=== PATIENT | male | born 1935 | race Caucasian/White ===

== ENCOUNTER 2017-08-28 12:25 | Emergency (ER) | payer MEDICARE, SELFPAY | END 2017-08-28 13:35 | disposition home or self-care (01) | PROVIDERS: Emergency Provider Emergency Medicine; Visit Provider Emergency Medicine | DX: J10.1 Influenza due to other identified influenza virus with other respiratory manifestations (principal); J20.9 Acute bronchitis, unspecified; E11.9 Type 2 diabetes mellitus without complications; I95.9 Hypotension, unspecified; Z79.82 Long term (current) use of aspirin; Z87.891 Personal history of nicotine dependence | CPT/HCPCS: 87275; 87276 ==

== ENCOUNTER 2021-05-03 22:20 | Emergency (ER) | payer MEDICARE, OTHER, SELFPAY ==
[2021-05-03 22:32] VITALS: BP 111/57; PULSE 82; RESP 20; TEMP 37.8; O2SAT 95; BMI 21.9
--- NOTE | 2021-05-03 22:47 | CT_ITS ---
PROCEDURE INFORMATION: Exam: CT Head Without Contrast Exam date and time: 05/03/2021 10:47 PM Age: 85 years old Clinical indication: Altered mental status/memory loss; Additional info: AMS TECHNIQUE: Imaging protocol: Computed tomography of the head without contrast. Radiation optimization: All CT scans at this facility use at least one of these dose optimization techniques: automated exposure control; mA and/or kV adjustment per patient size (includes targeted exams where dose is matched to clinical indication); or iterative reconstruction. COMPARISON: No relevant prior studies available. FINDINGS: Brain: Atrophy and chronic small vessel ischemic changes. No hemorrhage. No mass effect or midline shift. Cerebral ventricles: No ventriculomegaly. Paranasal sinuses: Visualized sinuses are unremarkable. No fluid levels. Mastoid air cells: Visualized mastoid air cells are well aerated. Bones/joints: Unremarkable. No acute fracture. Soft tissues: Unremarkable. IMPRESSION: Chronic changes in the brain but no acute intracranial abnormality.
[2021-05-03 22:58] LABS: Basophils # 0.1 K/mm3 (0-0.2); Basophils % 1.2 % (0.1-2.0); Eosinophils # 0.1 K/mm3 (0.0-0.4); Eosinophils % 1.4 % (0.1-12.0); Hematocrit 38.6 % (42.0-52.0); Hemoglobin 12.6 g/dL (14.1-18.0); Lymphocytes # 0.5 K/mm3 (0.7-4.5); Lymphocytes % 9.2 % (10-50); Mean Corpuscular HGB Conc 32.6 g/dL (31.8-35.4); Mean Corpuscular Hemoglobin 30.5 pg (27.0-31.2); Mean Corpuscular Volume 93.5 fl (80-94); Mean Platelet Volume 8.4 fl (7.4-10.4); Monocytes # 0.5 K/mm3 (0.1-1.0); Monocytes % 8.8 % (1.7-9.3); Neutrophils # 4.4 K/mm3 (1.8-7.8); Neutrophils % 79.3 % (37.0-80.0); Platelet Count 173 K/mm3 (142-424); Red Blood Count 4.13 M/mm3 (4.60-6.20); Red Cell Distribution Width 14.4 % (11.5-17.5); White Blood Count 5.6 K/mm3 (4.8-10.8)
[2021-05-03 23:04] LABS: Alanine Aminotransferase 22 U/L (12-78); Albumin/Globulin Ratio 1.4 (1.1-1.8); Alkaline Phosphatase 73 U/L (38-126); Aspartate Amino Transferase 29 U/L (17-59); Bilirubin,Total 0.4 mg/dl (0.2-1.3); Blood Urea Nitrogen 12 mg/dl (9-20); Calcium 9.5 mg/dl (8.4-10.2); Carbon Dioxide 31 mmol/L (22.0-30.0); Chloride 100 mmol/L (98-107); Creatinine Clearance Estimated 55 mL/min (50-200); Estimated Glomerular Filt Rate 107 ml/min (>60); GFR (African American) 130 ML/MIN (>60); Globulin 2.9 g/dL (1.3-3.2); Glucose 193 mg/dl (74-100); Lactic Acid 1.1 mmol/L (0.7-2.1); Sodium 136 mmol/L (136-145); Total Protein,Serum 6.9 g/dl (6.3-8.2)
[2021-05-03 23:05] LABS: Microscopic, Urine URINE MICROSCOPIC (MICROSCOPIC)
[2021-05-03 23:07] LABS: Appearance,Urine CLEAR (Clear); Bilirubin,Urine Negative (Negative); Blood, Urine TRACE-I (Negative); Color,Urine YELLOW (Yellow); Glucose,Urine (UA) 2+ (Negative); Ketones,Urine Negative (Negative); Leukocyte Esterase,Urine 1+ (Negative); Nitrate,Urine Negative (Negative); Protein,Urine Negative (Negative); Urobilinogen,Urine 0.2 EU/dl (0.2)
[2021-05-03 23:09] LABS: C-Reactive Protein 8.1 mg/L (0-4)
--- NOTE | 2021-05-03 23:15 | HMH.EDAMS ---
ED Disposition Clinical Impression: Acute delirium, COVID-19 UTI (urinary tract infection) Qualifiers: Urinary tract infection type: site unspecified Hematuria presence: without hematuria Qualified Code(s): N39.0 - Urinary tract infection, site not specified Disposition: Home, Self-Care Condition on Discharge: Fair Instructions: DI for COVID-19 (Suspected or Confirmed ), DI for Urinary Tract Infection (UTI) Additional Instructions: fluids and call pcp for follow up and possible covid-19 infusion Prescriptions: Cefdinir [Omnicef 300mg Capsule] 300 mg PO BID #14 cap Transmission Status: Pending to [facility][id number] Referrals: Provider,Referral, [Primary Care Provider] - - Critical Care Critical Care Time: No Attestation: On 05/03/21, the high probability of a clinically significant, sudden or life threatening deterioration of the following system(s) required my full and direct attention, intervention and personal management. The time I documented below is in addition to time spent performing reported procedures but includes the following listed in this critical care notation. Medical Decision Making - Medical Records Medical records reviewed: Yes: I reviewed the patient's medical records. - Mendel Inquiry Pt receiving controlled substance: No Vital Signs: 05/03/21 22:32 05/03/21 23:24 Temperature 100.0 F H 101.3 F H Temperature Source Oral Rectal Pulse Rate [Right] 82 Respiratory Rate 20 Blood Pressure [Left Arm] 111/57 L Blood Pressure Mean [Left Arm] 75 Blood Pressure Source [Left Arm] Automatic Cuff Blood Pressure Position [Left Arm] Supine 02 Sat by Pulse Oximetry 95 Oxygen Delivery Method Room Air - Lab Data Lab results reviewed: Yes: I reviewed the patient's lab results. Lab Results 05/03/21 22:43: WBC 5.6, RBC 4.13 L, Hgb 12.6 L, Hct 38.6 L, MCV 93.5, MCH 30.5, MCHC 32.6, RDW 14.4, Plt Count 173, MPV 8.4, Neut % (Auto) 79.3, Lymph % (Auto) 9.2 L, [place] % (Auto) 8.8, Eos % (Auto) 1.4, Baso % (Auto) 1.2, Neut # (Auto) 4.4, Lymph # (Auto) 0.5 L, [place] # (Auto) 0.5, Eos # (Auto) 0.1, Baso # (Auto) 0.1, ESR 19 05/03/21 22:43: Sodium 136, Potassium 4.0, Chloride 100, Carbon Dioxide 31 H, Anion Gap 9.0, BUN 12, Creatinine 0.70, Estimated Creat Clear 55, Estimated GFR 107, Est GFR ( Amer) 130, Glucose 193 H, Calcium 9.5, Total Bilirubin 0.4, AST 29, ALT 22, Alkaline Phosphatase 73, C-Reactive Protein 8.1 H, Total Protein 6.9, Albumin 4.0, Globulin 2.9, Albumin/Globulin Ratio 1.4, Procalcitonin 0.136 05/03/21 22:43: Lactate 1.1 05/03/21 22:43: Troponin I < 0.01 05/03/21 23:00: Urine Color Yellow, Urine Appearance Clear, Urine pH 6.0, Ur Specific [place] 1.020, Urine Protein Negative, Urine Glucose (UA) 2+, Urine Ketones Negative, Urine Blood Trace-i, Urine Nitrate Negative, Urine Bilirubin Negative, Urine Urobilinogen 0.2, Ur Leukocyte Esterase 1+ A, Urine RBC 3-5, Urine WBC 10-20 05/03/21 23:30: SARS-CoV-2 (PCR) Detected A, Influenza A Untype (PCR) Not detected, Influenza Type B (PCR) Not detected Result diagrams: 05/03/21 22:43 05/03/21 22:43 Orders (Tests/Meds): ED MEDICATIONS Generic Name Dose Route Start Last Admin Trade Name Freq PRN Reason Stop Dose Admin Sodium Chloride 1,000 mls @ 999 mls/hr 05/03/21 23:30 05/03/21 23:29 Sod Chlor 0.9% 1000ml Bag IV 05/04/21 00:30 999 mls/hr .Q1H1M LEAH Administration Ceftriaxone Sodium 1 gm/ 50 mls @ 100 mls/hr 05/03/21 23:30 05/03/21 23:29 Sodium Chloride IV 05/17/21 23:29 100 mls/hr Q24H LEAH Administration Discontinued Medications Generic Name Dose Route Start Last Admin Trade Name Freq PRN Reason Stop Dose Admin Acetaminophen 1,000 mg 05/03/21 23:25 05/03/21 23:28 Acetaminophen 500mg Tab PO 05/03/21 23:26 1,000 mg ONCE ONE Administration ORDERS Category Date Time Status Troponin I Q3H Lab 05/04/21 02:30 Ordered Troponin I Q3H Lab 05/04/21 05:30 Ordered Blood Culture S
--- NOTE | 2021-05-03 23:18 | ECG_ITS ---
APPROVED REPORT Exam: Resting ECG HR:83 bpm ECG Measurements Heart Rate 83 AXES MO 140 P 41 QRSd 74 QRS -55 QT 358 T 72 QTc 420 Conclusion Normal sinus rhythm Left anterior fascicular block Late R wave progression Abnormal ECG Electronically signed by : Reginald Amado MD 05/04/2021 20:38:29
--- NOTE | 2021-05-03 23:18 | XR_ITS ---
PROCEDURE INFORMATION: Exam: XR Chest Exam date and time: 05/03/2021 11:18 PM Age: 85 years old Clinical indication: Fever; Additional info: Confusion, fever TECHNIQUE: Imaging protocol: XR of the chest. Views: 1 view. COMPARISON: No relevant prior studies available. FINDINGS: Lungs: Mild scarring and atelectasis in the lung bases. COPD. No consolidation. Pleural spaces: Unremarkable. No pleural effusion. No pneumothorax. Heart/Mediastinum: Unremarkable. No cardiomegaly. Bones/joints: Unremarkable. IMPRESSION: No acute findings.
[2021-05-03 23:22] LABS: Procalcitonin 0.136 ng/mL (0.0-2.0)
[2021-05-03 23:24] VITALS: TEMP 38.5
[2021-05-03 23:24] LABS: Erythrocyte Sedimentation Rate 19 mm/hr (0-20)
[2021-05-03 23:37] LABS: Influenza A, PCR Not Detected (NotDetected); Influenza B, PCR Not Detected (NotDetected)
[2021-05-03 23:41] LABS: Troponin I < 0.01 ng/ml (0.00-0.034)
[2021-05-03 23:57] LABS: Coronavirus 19, PCR Detected (NotDetected)
[2021-05-04 00:52] VITALS: BP 121/71; PULSE 79; RESP 20; TEMP 37.6; O2SAT 95
== END 2021-05-04 00:54 | disposition home or self-care (01) ==
PROVIDERS: Emergency Provider Emergency Medicine
DX: U07.1 COVID-19 (principal); R41.0 Disorientation, unspecified; N30.00 Acute cystitis without hematuria; I10 Essential (primary) hypertension; F41.9 Anxiety disorder, unspecified
CPT/HCPCS: 70450; 71045; 80053; 81001; 83605; 84145; 84484; 85025; 85651; 86140; 87040; 87077; 87086; 87186; 93005; 96365; 99284; U0003

== ENCOUNTER 2021-10-05 15:13 | Emergency (ER) | payer MEDICARE, OTHER, SELFPAY ==
[2021-10-05 15:14] VITALS: BP 112/79; PULSE 73; RESP 16; TEMP 37.1; O2SAT 97; BMI 22.3
--- NOTE | 2021-10-05 15:47 | HMH.EDGENADL ---
ED Disposition Clinical Impression: Cellulitis of both lower extremities, Lower extremity edema Disposition: Home, Self-Care Condition on Discharge: Good Instructions: Cellulitis, DI for Peripheral Edema -- Bilateral Additional Instructions: follow up your doctor 5-7 days, return for worse Prescriptions: Mupirocin [Bactroban 2% Ointment 22gm tube] 1 applicatio TP TID 10 Days #22 gm Transmission Status: Pending to [email or web address] # cephALEXin [Cephalexin 500mg Tab] 500 mg PO Q6H #40 tab Transmission Status: Pending to [facility] # Referrals: Provider,Referral, [Primary Care Provider] - - Critical Care Critical Care Time: No Attestation: On , the high probability of a clinically significant, sudden or life threatening deterioration of the following system(s) required my full and direct attention, intervention and personal management. The time I documented below is in addition to time spent performing reported procedures but includes the following listed in this critical care notation. Medical Decision Making - Medical Records Medical records reviewed: Yes: I reviewed the patient's medical records. - Mendel Inquiry Pt receiving controlled substance: No Vital Signs: 10/05/21 15:14 10/05/21 16:26 Temperature 98.8 F Temperature Source Oral Pulse Rate 68 Pulse Rate [Left Radial] 73 Respiratory Rate 16 Blood Pressure 125/61 Blood Pressure [Right Arm] 112/79 Blood Pressure Mean [Right Arm] 90 Blood Pressure Source Automatic Cuff Blood Pressure Source [Right Arm] Automatic Cuff Blood Pressure Position Sitting Blood Pressure Position [Right Arm] Sitting 02 Sat by Pulse Oximetry 97 95 Oxygen Delivery Method Room Air Room Air - Lab Data Lab Results 10/05/21 15:40: WBC 6.6, RBC 4.21 L, Hgb 12.4 L, Hct 38.6 L, MCV 91.5, MCH 29.5, MCHC 32.3, RDW 15.3, Plt Count 243, MPV 8.8, Neut % (Auto) 72.2, Lymph % (Auto) 15.9, [place] % (Auto) 6.8, Eos % (Auto) 4.2, Baso % (Auto) 0.8, Neut # (Auto) 4.8, Lymph # (Auto) 1.1, Ocean # (Auto) 0.5, Eos # (Auto) 0.3, Baso # (Auto) 0.1 10/05/21 15:40: Sodium 139, Potassium 4.1, Chloride 99, Carbon Dioxide 31 H, Anion Gap 13.1, BUN 24 H, Creatinine 1.10, Estimated Creat Clear 50, Estimated GFR 64, Est GFR ( Amer) 77, Glucose 327 H, Calcium 9.4, Total Bilirubin 0.5, AST 21, ALT 14, Alkaline Phosphatase 90, Total Protein 6.9, Albumin 4.0, Globulin 2.9, Albumin/Globulin Ratio 1.4 Result diagrams: 10/05/21 15:40 10/05/21 15:40 Orders (Tests/Meds): ED MEDICATIONS Generic Name Dose Route Start Last Admin Trade Name Freq PRN Reason Stop Dose Admin Ceftriaxone Sodium 1 gm/ 50 mls @ 100 mls/hr 10/05/21 16:45 Sodium Chloride IV 10/05/21 17:14 ONCE ONE General Adult HPI - General Chief complaint: Wound/Laceration Stated complaint: pain in both legs Time Seen by Provider: 10/05/21 15:47 Mode of Arrival: Wheelchair Limitations: No Limitations Description of Symptoms (Recalled from ER Triage Doc. by RN): c/o bilateral leg sores and drainage for one month after bumping his legs against things at home - History of Present Illness HPI narrative: bilateral leg wounds and swelling, several weeks Onset (ago): week(s) Location: lower extremity Radiation: non-radiation Severity: moderate Consistency: constant Relieving factors: none Exacerbating factors: none Associated symptoms: denies other symptoms - Related Data Home Medications Medication Instructions Recorded Confirmed Ascorbic Acid [Vitamin C] 500 mg PO DAILY 05/03/21 05/03/21 Atorvastatin Calcium [Lipitor 40mg 40 mg PO HS 05/03/21 05/03/21 Tab] Docusate Sodium [Colace Clear] 50 mg PO BID PRN 05/03/21 05/03/21 Metformin HCl [Metformin 1000mg 1,000 mg PO BID 05/03/21 05/03/21 Tablets] carvediloL [Carvedilol 6.25mg Tab] 0.5 tab PO BID 05/03/21 05/03/21 glipiZIDE [Glipizide] 20 mg PO BID 09/05/21 09/05/21 hydroCHLOROthiazide [HCTZ 25mg 12
[2021-10-05 16:01] LABS: Basophils # 0.1 K/mm3 (0-0.2); Basophils % 0.8 % (0.1-2.0); Eosinophils # 0.3 K/mm3 (0.0-0.4); Eosinophils % 4.2 % (0.1-12.0); Hematocrit 38.6 % (42.0-52.0); Hemoglobin 12.4 g/dL (14.1-18.0); Lymphocytes # 1.1 K/mm3 (0.7-4.5); Lymphocytes % 15.9 % (10-50); Mean Corpuscular HGB Conc 32.3 g/dL (31.8-35.4); Mean Corpuscular Hemoglobin 29.5 pg (27.0-31.2); Mean Corpuscular Volume 91.5 fl (80-94); Mean Platelet Volume 8.8 fl (7.4-10.4); Monocytes # 0.5 K/mm3 (0.1-1.0); Monocytes % 6.8 % (1.7-9.3); Neutrophils # 4.8 K/mm3 (1.8-7.8); Neutrophils % 72.2 % (37.0-80.0); Platelet Count 243 K/mm3 (142-424); Red Blood Count 4.21 M/mm3 (4.60-6.20); Red Cell Distribution Width 15.3 % (11.5-17.5); White Blood Count 6.6 K/mm3 (4.8-10.8)
[2021-10-05 16:08] LABS: Alanine Aminotransferase 14 U/L (12-78); Albumin/Globulin Ratio 1.4 (1.1-1.8); Alkaline Phosphatase 90 U/L (38-126); Anion Gap 13.1 mEq/L (5-15); Aspartate Amino Transferase 21 U/L (17-59); Bilirubin,Total 0.5 mg/dl (0.2-1.3); Blood Urea Nitrogen 24 mg/dl (9-20); Calcium 9.4 mg/dl (8.4-10.2); Carbon Dioxide 31 mmol/L (22.0-30.0); Chloride 99 mmol/L (98-107); Creatinine Clearance Estimated 50 mL/min (50-200); Estimated Glomerular Filt Rate 64 ml/min (>60); GFR (African American) 77 ML/MIN (>60); Globulin 2.9 g/dL (1.3-3.2); Glucose 327 mg/dl (74-100); Potassium 4.1 mmoL/L (3.5-5.1); Sodium 139 mmol/L (136-145); Total Protein,Serum 6.9 g/dl (6.3-8.2)
[2021-10-05 16:26] VITALS: BP 125/61; PULSE 68; O2SAT 95
--- NOTE | 2021-10-05 17:19 | PC.NURSE ---
Bactroban cream wrapped on legs with non adhesive pads place on top of legs wrapped in kerlex and sana wrap. Pt tolerated well
[2021-10-05 17:36] VITALS: BP 120/60; PULSE 71; RESP 16; TEMP 37.1; O2SAT 96
== END 2021-10-05 17:38 | disposition home or self-care (01) ==
PROVIDERS: Emergency Provider Emergency Medicine
DX: L03.115 Cellulitis of right lower limb (principal); L03.116 Cellulitis of left lower limb
CPT/HCPCS: 80053; 85025; 96374; 99282; J0696

== ENCOUNTER 2022-04-22 23:13 | Emergency (ER) | payer MEDICARE, OTHER, SELFPAY ==
[2022-04-22 23:13] VITALS: BP 157/83; PULSE 88; RESP 16; TEMP 36.7; O2SAT 98; BMI 22.1
[2022-04-22 23:30] VITALS: BP 136/92; PULSE 84; O2SAT 94
[2022-04-22 23:53] LABS: Microscopic, Urine URINE MICROSCOPIC (MICROSCOPIC)
[2022-04-22 23:55] LABS: Basophils # 0.1 K/mm3 (0-0.2); Basophils % 0.8 % (0.1-2.0); Eosinophils # 0.3 K/mm3 (0.0-0.4); Eosinophils % 2.7 % (0.1-12.0); Hematocrit 38.8 % (42.0-52.0); Lymphocytes # 1.4 K/mm3 (0.7-4.5); Lymphocytes % 13.3 % (10-50); Mean Corpuscular HGB Conc 30.9 g/dL (31.8-35.4); Mean Corpuscular Hemoglobin 28.7 pg (27.0-31.2); Mean Corpuscular Volume 92.9 fl (80-94); Mean Platelet Volume 9.8 fl (7.4-10.4); Monocytes % 9.2 % (1.7-9.3); Neutrophils % 74.1 % (37.0-80.0); Platelet Count 229 K/mm3 (142-424); Red Blood Count 4.18 M/mm3 (4.60-6.20); Red Cell Distribution Width 15.5 % (11.5-17.5); White Blood Count 10.8 K/mm3 (4.8-10.8)
[2022-04-22 23:59] LABS: Appearance,Urine CLEAR (Clear); Bilirubin,Urine Negative (Negative); Blood, Urine 3+ (Negative); Color,Urine YELLOW (Yellow); Glucose,Urine (UA) Negative (Negative); Ketones,Urine Negative (Negative); Leukocyte Esterase,Urine Negative (Negative); Nitrate,Urine Negative (Negative); PH,Urine 6.5 (5.0-8.5); Protein,Urine Negative (Negative)
[2022-04-23] VITALS (17 sets, daily range): BP systolic 140–163; BP diastolic 73–95; PULSE 63–82; RESP 14–17; TEMP 36.9; O2SAT 95–98
--- NOTE | 2022-04-23 | CT_ITS ---
PROCEDURE INFORMATION: Exam: CT Head Without Contrast Exam date and time: 04/23/2022 12:20 AM Age: 86 years old Clinical indication: Injury or trauma; Fall; Blunt trauma (contusions or hematomas) TECHNIQUE: Imaging protocol: Computed tomography of the head without contrast. Radiation optimization: All CT scans at this facility use at least one of these dose optimization techniques: automated exposure control; mA and/or kV adjustment per patient size (includes targeted exams where dose is matched to clinical indication); or iterative reconstruction. COMPARISON: CT HEAD/BRAIN WO CON 05/03/2021 10:59 PM FINDINGS: Brain: There is diffuse cortical volume loss and hypoattenuation of the deep white matter. No evidence of acute intracranial hemorrhage. No acute cerebral edema, mass effect or shift. Cerebral ventricles: No ventriculomegaly. Paranasal sinuses: Visualized sinuses are unremarkable. No fluid levels. Mastoid air cells: Visualized mastoid air cells are well aerated. Bones/joints: Unremarkable. No acute fracture. Soft tissues: Unremarkable. IMPRESSION: No acute intracranial process. Diffuse cortical atrophy and chronic deep white matter small vessel disease.
--- NOTE | 2022-04-23 | XR_ITS ---
PROCEDURE INFORMATION: Exam: XR Pelvis Exam date and time: 04/23/2022 12:01 AM Age: 86 years old Clinical indication: Injury or trauma; Fall; Blunt trauma (contusions or hematomas); Bilateral; Pelvic region TECHNIQUE: Imaging protocol: Radiologic exam of the pelvis. Views: 1 or 2 view. COMPARISON: No relevant prior studies available. FINDINGS: Tubes, catheters and devices: Bhandari catheter overlies the pelvis. Bones/joints: There appears to be cortical disruption of the right lesser trochanter. Degenerative spondylosis, rotoscoliosis and facet arthropathy within the spine. Osteophytosis and eburnation of the sacroiliac joints and hips. Diffuse bone demineralization. Soft tissues: Unremarkable. Vasculature: Phleboliths overlie the pelvic soft tissues. Calcifications of aorta and its branches. IMPRESSION: 1. Cannot exclude fracture of right lesser trochanter. 2. Bhandari catheter overlies the pelvis. 3. 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 4. 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 5. Osteopenia. 6. Atherosclerotic vascular disease.
--- NOTE | 2022-04-23 | XR_ITS ---
PROCEDURE INFORMATION: Exam: XR Left Shoulder Exam date and time: 04/23/2022 12:04 AM Age: 86 years old Clinical indication: Injury or trauma; Fall; Blunt trauma (contusions or hematomas); Shoulder; Left TECHNIQUE: Imaging protocol: Radiologic exam of the Left shoulder. Views: 2 or more views. COMPARISON: CR XR CHEST PORTABLE 04/23/2022 12:01 AM FINDINGS: Bones/joints: Diffuse bone demineralization. Osteophytosis and eburnation of the acromioclavicular and glenohumeral articulating surfaces. Degenerative spondylosis, uncovertebral hypertrophy and facet arthropathy within the cervical spine Vasculature: Calcification within thoracic aorta. Soft tissues: Normal. IMPRESSION: No acute fracture is identified.
--- NOTE | 2022-04-23 | CT_ITS ---
PROCEDURE INFORMATION: Exam: CT Cervical Spine Without Contrast Exam date and time: 04/23/2022 12:20 AM Age: 86 years old Clinical indication: Injury or trauma; Fall; Blunt trauma TECHNIQUE: Imaging protocol: Computed tomography of the cervical spine without contrast. Radiation optimization: All CT scans at this facility use at least one of these dose optimization techniques: automated exposure control; mA and/or kV adjustment per patient size (includes targeted exams where dose is matched to clinical indication); or iterative reconstruction. COMPARISON: CT HEAD/BRAIN WO CON 05/03/2021 10:59 PM FINDINGS: Bones/joints: There is spondyloarthropathy. There is no acute fracture or dislocation. There are degenerative disc changes. Lungs: The lung apices demonstrate no acute process. Soft tissues: Unremarkable. IMPRESSION: No acute process or fracture. There is spondyloarthropathy and degenerative disc disease.
--- NOTE | 2022-04-23 | XR_ITS ---
PROCEDURE INFORMATION: Exam: XR Chest Exam date and time: 04/23/2022 12:01 AM Age: 86 years old Clinical indication: Injury or trauma; Fall; Blunt trauma (contusions or hematomas) TECHNIQUE: Imaging protocol: Radiologic exam of the chest. Views: 1 view. COMPARISON: CR XR CHEST PORTABLE 05/03/2021 11:35 PM FINDINGS: Lungs:Lucency in the left lateral costophrenic angle may reflect a skin fold with pneumothorax to be excluded. Follow-up with CT of the chest. No apical pneumothorax. Pleural spaces: Unremarkable. No pleural effusion. No pneumothorax. Heart/Mediastinum: Unremarkable. No cardiomegaly. Vasculature: Calcification within thoracic aorta. Bones/joints: Degenerative changes of the spine and shoulders. IMPRESSION: Lucency in the left lateral costophrenic angle may reflect a skin fold with pneumothorax to be excluded. Follow-up with CT of the chest. No apical pneumothorax.
--- NOTE | 2022-04-23 | XR_ITS ---
PROCEDURE INFORMATION: Exam: XR Right Shoulder Exam date and time: 04/23/2022 12:02 AM Age: 86 years old Clinical indication: Pain; Shoulder; Right; Additional info: Fall TECHNIQUE: Imaging protocol: Radiologic exam of the Right shoulder. Views: 2 or more views. COMPARISON: CR XR CHEST PORTABLE 04/23/2022 12:01 AM FINDINGS: Bones/joints: Osteophytosis and eburnation of the acromioclavicular and glenohumeral articulating surfaces. Mild diffuse bone demineralization. Degenerative spondylosis and facet arthropathy within the spine. Soft tissues: Normal. IMPRESSION: 1. No acute fracture is identified. 2. Osteoarthritis. 3. Osteopenia.
[2022-04-23 00:01] LABS: Alanine Aminotransferase 32 U/L (12-78); Albumin/Globulin Ratio 1.3 (1.1-1.8); Alkaline Phosphatase 109 U/L (38-126); Aspartate Amino Transferase 30 U/L (17-59); Bilirubin,Total 0.5 mg/dl (0.2-1.3); Blood Urea Nitrogen 19 mg/dl (9-20); Calcium 9.6 mg/dl (8.4-10.2); Carbon Dioxide 30 mmol/L (22.0-30.0); Chloride 104 mmol/L (98-107); Creatinine Clearance Estimated 52 mL/min (50-200); Estimated Glomerular Filt Rate 107 ml/min (>60); GFR (African American) 130 ML/MIN (>60); Glucose 174 mg/dl (74-100); Sodium 140 mmol/L (136-145)
--- NOTE | 2022-04-23 00:02 | ECG_ITS ---
APPROVED REPORT Exam: Resting ECG HR:87 bpm ECG Measurements Heart Rate 87 AXES CO 163 P 61 QRSd 94 QRS -66 QT 368 T 73 QTc 413 Conclusion SINUS RHYTHM LEFT ANTERIOR FASCICULAR BLOCK [QRS AXIS <= -45, QR IN I, RS IN II] POSSIBLE ANTERIOR MYOCARDIAL INFARCTION , PROBABLY OLD [30 ms Q WAVE IN V3/V4, OR R < 0.2 mV IN V4] ABNORMAL ECG UNCONFIRMED REPORT Electronically signed by : Reginald Amado MD 04/24/2022 08:05:42
[2022-04-23 00:07] LABS: C-Reactive Protein 3.3 mg/L (0-4)
[2022-04-23 00:17] LABS: Procalcitonin 0.071 ng/mL (0.0-2.0)
[2022-04-23 00:25] LABS: Lactic Acid 1.6 mmol/L (0.7-2.1)
[2022-04-23 00:35] LABS: Bacteria,Urine Trace /lpf; RBC,Urine 50-100 #/hpf (0-3); Squamous Epithelial Cell,Urine Occasional #/hpf (0-5)
[2022-04-23 00:36] LABS: Troponin I < 0.01 ng/ml (0.00-0.034)
[2022-04-23 00:39] LABS: Erythrocyte Sedimentation Rate 19 mm/hr (0-20)
[2022-04-23 00:58] LABS: Coronavirus 19, PCR Not Detected (NotDetected); Influenza A, PCR Not Detected (NotDetected); Influenza B, PCR Not Detected (NotDetected)
[2022-04-23 00:59] LABS: Creatine Kinase 60 U/L (55-170)
--- NOTE | 2022-04-23 01:51 | PC.NURSE ---
Pt given blanket for comfort. No other needs or complaints voiced.
--- NOTE | 2022-04-23 01:52 | CT_ITS ---
PROCEDURE INFORMATION: Exam: CT Right Lower Extremity Without Contrast, Hip Exam date and time: 04/23/2022 2:05 AM Age: 86 years old Clinical indication: Injury or trauma; Fall; Blunt trauma; Hip; Right TECHNIQUE: Imaging protocol: CT of the Right lower extremity without contrast was performed. Exam focused on the hip. 3D rendering (Not supervised by radiologist): MIP and/or 3D reconstructed images were created by the technologist. Radiation optimization: All CT scans at this facility use at least one of these dose optimization techniques: automated exposure control; mA and/or kV adjustment per patient size (includes targeted exams where dose is matched to clinical indication); or iterative reconstruction. COMPARISON: CR XR PELVIS 1-2V 04/23/2022 12:01 AM FINDINGS: Tubes, catheters and devices: Bhandari catheter. Bones/joints: Suspected fracture of the proximal right femur appears to have been artifactual on the recent conventional radiographs. There is no evidence of acute displaced cortical disruption or dislocation on today's exam. Diffuse bone demineralization. Osteophytosis and eburnation of the sacroiliac and acetabular articulating surfaces. Soft tissues: Normal. Vasculature: Extensive vascular calcifications. IMPRESSION: 1. Suspected fracture of the proximal right femur appears to have been artifactual on the recent conventional radiographs. There is no evidence of acute displaced cortical disruption or dislocation on today's exam. 2. Osteopenia. 3. Osteoarthritis of the sacroiliac and acetabular articulating surfaces. 4. Atherosclerotic vascular disease. 5. Bhandari catheter.
--- NOTE | 2022-04-23 01:59 | HMH.EDFALL ---
Discharge Plan Disposition Patient Disposition: Home, Self-Care Chief Complaint: Fall Prescriptions Prescriptions: No Action atorvastatin 40 MG tablet 40 mg PO HS carvedilol 6.25 MG tablet 0.5 tab PO BID glipizide 10 MG tablet 20 mg PO BID docusate sodium 50 MG capsule 50 mg PO BID PRN (Reason: stool) metformin 1,000 MG tablet 1,000 mg PO BID ascorbic acid (vitamin C) 500 MG capsule 500 mg PO DAILY ferrous sulfate 325 mg (65 mg iron) Tablet 325 mg PO DAILY duloxetine 60 mg Capsule,Delayed Release(Dr/Ec) 60 mg PO DAILY Referrals Referrals: Prabhakar Mittal MD [Primary Care Provider] - Enter time for follow up Clinical Impressions Clinical Impression: Lumbar contusion, Fall, Functional gait abnormality Instructions Patient Instructions: How to Prevent Falls Discharge ED Provider: Elmo Beth Fall HPI General Chief Complaint: Fall Stated Complaint: Fall Time Seen by Provider: 04/23/22 01:59 Mode of Arrival: EMS Source of Information: Patient, EMS and Medical Record Limitations: Altered Mental Status Description of Symptoms (Recalled from ER Triage Doc. by RN): per EMS pt has have several fall the past souple of days. tonight pt fell on front porch. pt c/o bilateral shoulder pain History of Present Illness HPI Narrative: hx of falls and found on porch tonight after fall was urinary incont - pt is poor historian - no specific c/o complaint: fall Onset (ago): hour(s) Fall from: wheelchair Fall witnessed: no Place fall occurred: home Loss of consciousness: unsure Prolonged down time: yes and hour(s) (2hrs ) Context: history of frequent falls Location of injury: head Location of injury - extremities: Bilateral: shoulder Severity: moderate Associated symptoms (after fall): unable to walk Related Data Home Medications Medication Instructions Recorded Confirmed ascorbic acid (vitamin C) 500 mg 500 mg PO DAILY Diet supplement 05/03/21 04/23/22 capsule atorvastatin 40 mg tablet 40 mg PO HS Cholesterol 05/03/21 04/23/22 carvedilol 6.25 mg tablet 0.5 tab PO BID High blood pressure 05/03/21 04/23/22 docusate sodium 50 mg capsule 50 mg PO BID PRN stool 05/03/21 04/23/22 glipizide 10 mg tablet 20 mg PO BID Diabetes 05/03/21 04/23/22 metformin 1,000 mg tablet 1,000 mg PO BID Diabetes 05/03/21 04/23/22 duloxetine 60 mg capsule,delayed 60 mg PO DAILY Depression 04/23/22 04/23/22 release ferrous sulfate 325 mg (65 mg 325 mg PO DAILY Supplement 04/23/22 04/23/22 iron) tablet Allergies Allergy/AdvReac Type Severity Reaction Status Date / Time No Known Allergies Allergy Verified 04/22/18 09:05 [facility] Medical History (Updated 04/23/22 @ 12:00 by Elmo Beth MD) Depression Diabetes Hypertension Social History Smoking Status: Never smoker alcohol intake: never current occupational status: retired ROS Obtained: Yes Systems reviewed as appropriate & no additional complaints except as documented Constitutional Constitutional: Denies fever(s) Physical Exam General General appearance: in no apparent distress Head Head exam: atraumatic Eye Eye exam: Present PERRL and EOMI ENT ENT exam: Present mucous membranes dry Neck Neck exam: Present trachea midline Respiratory Respiratory exam: Present normal lung sounds bilaterally; Absent respiratory distress Cardiovascular Cardiovascular exam: Present regular rate, systolic murmur and +S4 Abdominal Exam Abdominal exam: Present soft Extremities Exam Extremities exam: Present edema Back Exam Back exam: Present tenderness; Absent CVA tenderness (R), vertebral tenderness or rashes Neurological Exam Neurological exam: Present alert and CN II-XII intact Skin Skin exam: Absent rash Medical Decision Making Medical Records Medical records reviewed: Yes I reviewed the patient's medical records. Mendel Inquiry Pt receiving controlled substance: No Vital Signs: 03/30
--- NOTE | 2022-04-23 02:02 | CT_ITS ---
PROCEDURE INFORMATION: Exam: CT Chest Without Contrast; Diagnostic Exam date and time: 04/23/2022 2:03 AM Age: 86 years old Clinical indication: Injury or trauma; Fall; Blunt trauma (contusions or hematomas) TECHNIQUE: Imaging protocol: Diagnostic computed tomography of the chest without contrast. Radiation optimization: All CT scans at this facility use at least one of these dose optimization techniques: automated exposure control; mA and/or kV adjustment per patient size (includes targeted exams where dose is matched to clinical indication); or iterative reconstruction. COMPARISON: CR XR CHEST PORTABLE 04/23/2022 12:01 AM FINDINGS: Thyroid: Thyroid gland is unremarkable. Trachea: Major airways are patent. Lungs: Dependent atelectasis bilaterally. Infiltrate versus atelectasis bilateral lung bases. Pleural spaces: No evidence of pneumothorax. Heart: Heart is not enlarged. Tiny amount of pericardial fluid or pericardial thickening. Lymph nodes: No mediastinal or hilar mass or lymphadenopathy. Vasculature: Calcifications within thoracic aorta, carotid and coronary arteries. Diaphragm: Sliding hiatal hernia. Kidneys and ureters: Punctate nonobstructing calyceal calcifications within the kidneys. Stomach and bowel: Mucosal thickening of the stomach is likely due to nondistention with gastritis or neoplasm to be excluded. Follow-up with endoscopic or double-contrast fluoroscopic studies. Excessive stool within the colon. Bones/joints: Degenerative spondylosis, rotoscoliosis and facet arthropathy are identified within the spine. There is diffuse bone demineralization. Remote left rib fractures. Soft tissues: Unremarkable. Other findings: Slight scarring and emphysematous cystic changes toward the apices. IMPRESSION: 1. Slight scarring and emphysematous cystic changes toward the apices. 2. Dependent atelectasis bilaterally. 3. Infiltrate versus atelectasis bilateral lung bases. 4. No evidence of pneumothorax. 5. Calcifications within thoracic aorta, carotid and coronary arteries. 6. Tiny amount of pericardial fluid or pericardial thickening. 7. Sliding hiatal hernia. 8. Mucosal thickening of the stomach is likely due to nondistention with gastritis or neoplasm to be excluded. Follow-up with endoscopic or double-contrast fluoroscopic studies. 9. Excessive stool within the colon. 10. Punctate nonobstructing calyceal calcifications within the kidneys.
--- NOTE | 2022-04-23 03:07 | PC.NURSE ---
Pt resting with both eyes closed. No needs or complaints voiced at this time.
[2022-04-23 03:23] LABS: Troponin I < 0.01 ng/ml (0.00-0.034)
--- NOTE | 2022-04-23 03:45 | PC.NURSE ---
[facility] CATH REMOVED. PT TOLERATED WELL.
--- NOTE | 2022-04-23 03:52 | CT_ITS ---
PROCEDURE INFORMATION: Exam: CT Thoracic Spine Without Contrast Exam date and time: 04/23/2022 4:11 AM Age: 86 years old Clinical indication: Injury or trauma; Fall; Blunt trauma (contusions or hematomas) TECHNIQUE: Imaging protocol: Computed tomography of the thoracic spine without contrast. Radiation optimization: All CT scans at this facility use at least one of these dose optimization techniques: automated exposure control; mA and/or kV adjustment per patient size (includes targeted exams where dose is matched to clinical indication); or iterative reconstruction. COMPARISON: CT CHEST WO CON 04/23/2022 2:03 AM FINDINGS: Bones/joints: No evidence of acute fracture or dislocation. Soft tissues: Unremarkable. IMPRESSION: No acute process or fracture.
--- NOTE | 2022-04-23 03:52 | CT_ITS ---
PROCEDURE INFORMATION: Exam: CT Lumbar Spine Without Contrast Exam date and time: 04/23/2022 4:13 AM Age: 86 years old Clinical indication: Injury or trauma; Fall; Blunt trauma (contusions or hematomas) TECHNIQUE: Imaging protocol: Computed tomography of the lumbar spine without contrast. Radiation optimization: All CT scans at this facility use at least one of these dose optimization techniques: automated exposure control; mA and/or kV adjustment per patient size (includes targeted exams where dose is matched to clinical indication); or iterative reconstruction. 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 There is spondyloarthropathy. No acute process or fracture. There are multilevel degenerative disc changes. Kidneys and ureters: Incidentally noted are punctate calcifications in the bilateral renal shirin measuring up to 2 mm consistent renal calculi. No evidence of obstructing urinary tract stones and no obstructive uropathy. Soft tissues: Unremarkable. IMPRESSION: No acute process or fracture. There is spondyloarthropathy and degenerative disc disease.
--- NOTE | 2022-04-23 04:27 | PC.NURSE ---
Pt ambulatory to wheelchair with assistance
--- NOTE | 2022-04-23 05:20 | PC.NURSE ---
Pt sitting up in bed. Talked with tech for short period of time. Pt seems to be in better spirits. Advises he is ready to go home.
--- NOTE | 2022-04-23 05:47 | PC.NURSE ---
Pt repositioned in bed for comfort. No other needs or complaints voiced.
--- NOTE | 2022-04-23 06:14 | PC.NURSE ---
Spoke with Kana at the [facility]. He advised that they were currently at full capacity and would be unable to get him transferred at this time. Kana was able to inform me that the pt had a social media editor, Jennifer Antonio out of [facility], who was familiar with the pt and his case, and had spoken with the son on 04/21/22. Message was left for Jennifer at ext. [phone] to give a call back at her earliest convenience.
--- NOTE | 2022-04-23 06:47 | PC.NURSE ---
Breakfast tray ordered for pt
--- NOTE | 2022-04-23 06:54 | PC.NURSE ---
Pt sitting up in wheelchair at this time.
--- NOTE | 2022-04-23 06:59 | PC.NURSE ---
pt sitting up in bed eating breakfast
--- NOTE | 2022-04-23 07:30 | PC.NURSE ---
pt up in wheelchair eating breakfast. offers no c/o at present
--- NOTE | 2022-04-23 08:25 | PC.NURSE ---
Case management in room with patient
--- NOTE | 2022-04-23 08:51 | PC.NURSE ---
Went into patient's room to assist him. His blanket was stuck in his wheel of his wheelchair. I asked patient if he needed anything and he said he wanted to go home. I told him we were working on trying to get him out of here. I told him that is why case management came to talk to him. If he needed anything i told him to call out
--- NOTE | 2022-04-23 09:09 | PC.NURSE ---
Fabi from care management back down to ER at this time, states she has spoken with pts son who lives in [place]. Reports the son states he will be here between 12-2 to get pt and take pt home, states pt son states he is going to stay with pt. Fabi brought a list of sitters to give to pts son.
--- NOTE | 2022-04-23 09:26 | CARE MANAGER ---
Spoke with patient. He was confused to place and time. He was unsure of his address and his sons' names. He was adamant that he did not want to go to [facility], but wanted to go home. Contacted his son, Kevin Mandujano, who states that the patient does stay by himself. However, there are cameras in the house that the son monitors and family close by that check on him frequently. Discussed at length with son that the current situation is not safe for the patient. Patient is unable to walk and confused and should not be left alone. Son states all the family works so it makes it difficult to have someone with him all the time. He agrees that patient needs more care. We discussed going to [facility] as longterm care as he is at baseline and does not need rehab. Patient would need to be private pay or Medicaid. Son states that he really doesn't want to place patient in [facility] and wants to take him home, but he cannot be at ER until between 12pm and 2pm. Provided them with a sitter list and he states he will stay with him until he talks to his brother and they decide what to do. HECTOR Roth
--- NOTE | 2022-04-23 09:45 | PC.NURSE ---
Went in to patients room because i saw patient try to get into the sharps container. Educated patient on what the red boxes were and that there are sharp objects in there that could hurt him. Patient stated he needed to use the restroom so i brought him a urinal
--- NOTE | 2022-04-23 10:20 | PC.NURSE ---
checked on pt at this time, pt sitting wheelchair. Curtain open in room for safety of viewing pt. Pt states no needs at this time. will continue to monitor.
--- NOTE | 2022-04-23 10:26 | PC.NURSE ---
Patient is asleep in wheelchair. Left curtain open to be able to keep an eye out for patient.
--- NOTE | 2022-04-23 12:47 | PC.NURSE ---
Patient was in wheelchair asleep; patient looked uncomfortable so Adair YOUNG and I went in to get him into bed. Patient is now in bed asleep and comfortable. Patient does not need anything at this time.
--- NOTE | 2022-04-23 15:39 | PC.NURSE ---
pt son called reports he is on his way to the hospital to get pt. Reports he is coming from [place].
--- NOTE | 2022-04-23 16:45 | PC.NURSE ---
Patient had urinated all over the bed. Adair YOUNG and I went in to clean patient up and get him up in a wheel chair to go home with his son. We got him cleaned up and to the side of the bed when patient swung his left fist and struck the right side of my head. Calling us names and swinging at us numerous times after that. We finally got patient up in wheelchair and out to son's truck.
--- NOTE | 2022-04-27 14:03 | CARE MANAGER ---
DESTINY Álvarez spoke with son, Kevin yesterday regarding placement. He has now decided he does want his father to be placed. She discussed with him that they would likely need to get POA or guardianship in the court if the patient is refusing to go and is also confused. However, we would send the information to jail of their choice so that they could explain to them the process of Medicaid for intermediate card tender care and answer other questions that Kevin had. Information sent to Jeannette at [facility]. HECTOR Roth
== END 2022-04-23 16:55 | disposition home or self-care (01) ==
PROVIDERS: Emergency Provider Emergency Medicine; PCP Family Medicine
DX: S30.0XXA Contusion of lower back and pelvis, initial encounter (principal); R26.89 Other abnormalities of gait and mobility; W19.XXXA Unspecified fall, initial encounter; Z79.899 Other long term (current) drug therapy; Z79.84 Long term (current) use of oral hypoglycemic drugs; E11.9 Type 2 diabetes mellitus without complications; F32.A Depression, unspecified
CPT/HCPCS: 51702; 70450; 71045; 71250; 72125; 72128; 72131; 72170; 73030; 73700; 80053; 81001; 82550; 83605; 84145; 84484; 85025; 85651; 86140; 87040; 87086; 93005; 96374; 99285; C9803; U0003; U0005